=== PATIENT | female | born 1975 | race Caucasian/White ===

== ENCOUNTER 2021-06-11 10:55 | Emergency (ER) | payer SELFPAY ==
[2021-06-11 11:00] VITALS: BP 151/62; PULSE 86; TEMP 99.1; BMI 29.2
[2021-06-11] MEDS ORDERED: FAMOTIDINE 20 MG/50 ML IVPB 20 MG in PREMIX 50 IVPB ONE (11:28)
[2021-06-11] MEDS ORDERED: FAMOTIDINE 20 MG/50 ML IVPB 20 MG/50 ML MG IVPB ONE (11:44)
[2021-06-11 12:00] LABS: HEMATOCRIT 44.1 % (32.4-45.2); HEMOGLOBIN 15.5 G/dL (10.7-15.3); MCH 31.1 pg (25.7-33.7); MCHC 35.1 g/dl (32.0-36.0); MEAN CELL VOLUME 88.4 fl (80-96); MEAN PLT VOLUME 9.8 fl (7.5-11.1); PLATELET COUNT 295.6 10^3/uL (134-434); RBC 4.99 10^6/uL (3.60-5.2); RDW 13.7 % (11.6-15.6)
[2021-06-11 12:08] LABS: ALBUMIN 4.6 g/dl (3.4-5.0); ALK PHOS 52 U/L (45-117); ANION GAP 8 MMOL/L (8-16); BILIRUBIN,TOTAL 0.9 mg/dl (0.2-1); CALCIUM 9.6 mg/dl (8.5-10); CHLORIDE 103 mmol/L (98-107); CO2 25 mmol/L (21-32); CREATININE 0.8 mg/dl (0.55-1.3); GLUCOSE,RANDOM 97 mg/dl (74-106); SGOT/AST 18 U/L (15-37); SGPT/ALT 22 U/L (13-61); SODIUM 136 mmol/L (136-145); TOT PROT 7.5 g/dl (6.4-8.2)
[2021-06-11 12:36] LABS: VENOUS BASE EXCESS -1.2 mmol/L (-2-2); VENOUS O2 SATURATION 51.2 % (70-80); VENOUS PCO2 47.8 mmHg (38-52); VENOUS PH 7.339 (7.310-7.410)
== END 2021-06-11 13:30 | disposition home or self-care (01) ==
LOC: FER 10:55
DX: R06.89 Other abnormalities of breathing (principal); R14.2 Eructation
CPT/HCPCS: 36415; 71046-TC-FY; 80053; 82803; 84484; 85025; 85379; 93005; 99285-25

== ENCOUNTER 2022-03-02 21:09 | Emergency (ER) | payer OTHER ==
[2022-03-02 21:18] VITALS: BP 153/80; PULSE 75; RESP 16; TEMP 98; BMI 28.3
== END 2022-03-02 22:04 | disposition home or self-care (01) ==
LOC: FER 21:09
DX: M94.0 Chondrocostal junction syndrome [Tietze] (principal)
CPT/HCPCS: 71046-TC-FY; 93005; 99284-25